=== PATIENT | female | born 1990 | race Two or more races ===

== ENCOUNTER 2018-10-04 16:56 | Emergency (ER) | payer SELFPAY ==
[~2018-10-04] VITALS: Ht 152.4 cm; Wt 48.0 kg
[2018-10-04 16:57] VITALS: BP 122/75
== END 2018-10-04 21:45 | disposition left against medical advice (07) ==
LOC: ER 16:56
DX: F10.129 Alcohol abuse with intoxication, unspecified (principal); R11.10 Vomiting, unspecified; Y90.9 Presence of alcohol in blood, level not specified
CPT/HCPCS: 99283